=== PATIENT | male | born 1975 | race African-American/Black ===

== ENCOUNTER 2020-06-24 12:39 | Emergency (ER) | payer OTHER ==
[~2020-06-24] VITALS: Ht 190.5 cm; Wt 100.0 kg
[2020-06-24 14:06] LABS: BASOPHILS # (AUTO) 0.1 X10'3 (0-0.2); BASOPHILS % (AUTO) 0.8 % (0-1); EOSINOPHILS # (AUTO) 0.2 X10'3 (0-0.9); EOSINOPHILS % (AUTO) 1.7 % (0-6); HEMATOCRIT 45.4 % (42.0-52.0); HEMOGLOBIN 14.9 g/dl (14.0-17.9); LYMPHOCYTES # (AUTO) 1.9 X10'3 (1.1-4.8); LYMPHOCYTES % (AUTO) 15.4 % (21-51); MEAN CORPUSCULAR HEMOGLOBIN 29.9 PG (27.0-31.0); MEAN CORPUSCULAR HGB CONC 32.8 g/dL (33.0-36.5); MEAN CORPUSCULAR VOLUME 91.4 FL (78-98); MEAN PLATELET VOLUME 7.8 FL (7.4-10.4); MONOCYTES # (AUTO) 1.1 X10'3 (0-0.9); MONOCYTES % (AUTO) 9.3 % (2-12); NEUTROPHILS # (AUTO) 8.9 X10'3 (1.8-7.7); NEUTROPHILS % (AUTO) 72.8 % (42-75); PLATELET COUNT 242 X10'3 (140-440); RED BLOOD COUNT 4.96 X10'6 (4.70-6.10); RED CELL DISTRIBUTION WIDTH 13.2 % (11.5-14.5); WHITE BLOOD COUNT 12.2 X10'3 (4.5-11.0)
[2020-06-24 14:20] LABS: ALANINE AMINOTRANSFERASE 43 U/L (12-78); ALBUMIN 2.7 G/DL (3.4-5.0); ALBUMIN/GLOBULIN RATIO 0.7 (1.1-1.5); ALKALINE PHOSPHATASE 92 IU/L (46-116); ANION GAP 8 (8-16); ASPARTATE AMINO TRANSFERASE 29 U/L (10-37); BILIRUBIN,TOTAL 0.8 MG/DL (0.1-1.0); BLOOD UREA NITROGEN 12 MG/DL (7-18); BUN/CREATININE RATIO 10.9 (5.4-32.0); CALCIUM 8.4 MG/DL (8.5-10.1); CHLORIDE 108 MMOL/L (99-107); GLUCOSE 95 MG/DL (70-104); POTASSIUM 3.5 MMOL/L (3.5-5.1); SODIUM 144 MMOL/L (135-145); TOTAL CARBON DIOXIDE 28.4 MMOL/L (24-32); TOTAL PROTEIN 6.6 G/DL (6.4-8.2); eGFR 72 ML/MIN
[2020-06-24] MEDS ORDERED: carVEDilol 12.5mg tablet PO SCH (16:55)
[2020-06-24] MEDS ORDERED: furosemide 10 MG/1 ML 10ml inj IV ONE (17:00)
[2020-06-24] MEDS ORDERED: aspirin 81mg tab.chew PO ONE (17:00)
[2020-06-24] MEDS ORDERED: enalaprilat dihydrate 2.5mg/2ml vial IV ONE (17:10)
[2020-06-24 18:19] VITALS: BP 147/103
== END 2020-06-24 18:21 | disposition home or self-care (01) ==
LOC: EEVIPCON 12:40 → ER 12:40
DX: I11.0 Hypertensive heart disease with heart failure (principal); I50.20 Unspecified systolic (congestive) heart failure; F15.90 Other stimulant use, unspecified, uncomplicated
CPT/HCPCS: 36415; 71045; 80053; 83880; 84484; 85025; 93005; 93306; 96374; 96375; 99285; J1940

== ENCOUNTER 2020-09-22 20:49 | Inpatient (IN) | payer MEDICAID, OTHER ==
[~2020-09-22] VITALS: Ht 190.5 cm; Wt 111.3 kg
[2020-09-22 21:22] LABS: BASOPHILS # (AUTO) 0.2 X10'3 (0-0.2); BASOPHILS % (AUTO) 1.5 % (0-1); EOSINOPHILS # (AUTO) 0.2 X10'3 (0-0.9); HEMATOCRIT 44.6 % (42.0-52.0); HEMOGLOBIN 14.3 g/dl (14.0-17.9); LYMPHOCYTES # (AUTO) 1.6 X10'3 (1.1-4.8); LYMPHOCYTES % (AUTO) 14.1 % (21-51); MEAN CORPUSCULAR HEMOGLOBIN 30.5 PG (27.0-31.0); MEAN CORPUSCULAR HGB CONC 32.2 g/dL (33.0-36.5); MEAN CORPUSCULAR VOLUME 94.9 FL (78-98); MEAN PLATELET VOLUME 7.8 FL (7.4-10.4); MONOCYTES # (AUTO) 1.1 X10'3 (0-0.9); MONOCYTES % (AUTO) 9.1 % (2-12); NEUTROPHILS # (AUTO) 8.5 X10'3 (1.8-7.7); NEUTROPHILS % (AUTO) 73.3 % (42-75); PLATELET COUNT 206 X10'3 (140-440); RED CELL DISTRIBUTION WIDTH 13.5 % (11.5-14.5); WHITE BLOOD COUNT 11.6 X10'3 (4.5-11.0)
[2020-09-22 21:34] LABS: ALANINE AMINOTRANSFERASE 42 U/L (12-78); ALBUMIN 3.1 G/DL (3.4-5.0); ALBUMIN/GLOBULIN RATIO 0.7 (1.1-1.5); ALKALINE PHOSPHATASE 133 IU/L (46-116); ANION GAP 7 (8-16); ASPARTATE AMINO TRANSFERASE 37 U/L (10-37); BILIRUBIN,TOTAL 0.6 MG/DL (0.1-1.0); BLOOD UREA NITROGEN 31 MG/DL (7-18); BUN/CREATININE RATIO 17.9 (5.4-32.0); CALCIUM 8.6 MG/DL (8.5-10.1); CHLORIDE 107 MMOL/L (99-107); CREATININE 1.73 MG/DL (0.60-1.10); GLUCOSE 151 MG/DL (70-104); POTASSIUM 3.6 MMOL/L (3.5-5.1); SODIUM 142 MMOL/L (135-145); TOTAL CARBON DIOXIDE 27.9 MMOL/L (24-32); TOTAL PROTEIN 7.8 G/DL (6.4-8.2); eGFR 52 ML/MIN
[2020-09-22] MEDS ORDERED: furosemide 10 MG/1 ML 10ml inj IV ONE (21:55)
[2020-09-22] MEDS ORDERED: LISI40TA4 PO (22:05)
[2020-09-22] MEDS ORDERED: FURO-149 PO (22:05)
[2020-09-22] MEDS ORDERED: CARV25TA PO (22:05)
[2020-09-22] MEDS ORDERED: magnesium hydroxide 30ml (MOM) UD suspension PO PRN (23:15)
[2020-09-22] MEDS ORDERED: acetaminophen 325mg tablet PO PRN (23:15)
[2020-09-22] MEDS ORDERED: potassium Cl 40MEQ/1/2NS 520ml 520 ML IV PRN ×2 (23:15)
[2020-09-22] MEDS ORDERED: mag hydrox/Alum hydrox/simeth 30ml oral suspension PO PRN (23:15)
[2020-09-22] MEDS ORDERED: potassium Cl 20 mEq SR tablet PO PRN (23:15)
[2020-09-22] MEDS ORDERED: ondansetron/PF 4mg/2ml inj IV PRN (23:15)
[2020-09-23] MEDS ORDERED: IBUP-24 PO (00:19)
[2020-09-23 03:05] LABS: BASOPHILS # (AUTO) 0.1 X10'3 (0-0.2); EOSINOPHILS # (AUTO) 0.1 X10'3 (0-0.9); EOSINOPHILS % (AUTO) 1.1 % (0-6); HEMOGLOBIN 13.8 g/dl (14.0-17.9); LYMPHOCYTES # (AUTO) 2.3 X10'3 (1.1-4.8); LYMPHOCYTES % (AUTO) 23.8 % (21-51); MEAN CORPUSCULAR HEMOGLOBIN 30.6 PG (27.0-31.0); MEAN CORPUSCULAR HGB CONC 32.8 g/dL (33.0-36.5); MEAN CORPUSCULAR VOLUME 93.4 FL (78-98); MEAN PLATELET VOLUME 7.8 FL (7.4-10.4); MONOCYTES % (AUTO) 10.8 % (2-12); NEUTROPHILS # (AUTO) 6.1 X10'3 (1.8-7.7); NEUTROPHILS % (AUTO) 63.3 % (42-75); PLATELET COUNT 199 X10'3 (140-440); RED BLOOD COUNT 4.49 X10'6 (4.70-6.10); RED CELL DISTRIBUTION WIDTH 13.5 % (11.5-14.5); WHITE BLOOD COUNT 9.7 X10'3 (4.5-11.0)
[2020-09-23 03:19] LABS: ALANINE AMINOTRANSFERASE 43 U/L (12-78); ALBUMIN 2.9 G/DL (3.4-5.0); ALBUMIN/GLOBULIN RATIO 0.6 (1.1-1.5); ALKALINE PHOSPHATASE 109 IU/L (46-116); ANION GAP 7 (8-16); ASPARTATE AMINO TRANSFERASE 44 U/L (10-37); BILIRUBIN,TOTAL 0.8 MG/DL (0.1-1.0); BLOOD UREA NITROGEN 29 MG/DL (7-18); BUN/CREATININE RATIO 19.7 (5.4-32.0); CALCIUM 8.9 MG/DL (8.5-10.1); CHLORIDE 109 MMOL/L (99-107); CREATININE 1.47 MG/DL (0.60-1.10); GLUCOSE 128 MG/DL (70-104); POTASSIUM 3.1 MMOL/L (3.5-5.1); SODIUM 145 MMOL/L (135-145); TOTAL CARBON DIOXIDE 28.9 MMOL/L (24-32); TOTAL PROTEIN 7.4 G/DL (6.4-8.2); eGFR 62 ML/MIN
[2020-09-23] MEDS: potassium Cl 20 mEq SR tablet PO PRN ×3 (04:10→16:02)
[2020-09-23] MEDS: K and/or MAG REPLACEMENT MC SCH ×2 (08:00→19:48)
[2020-09-23] MEDS ORDERED: furosemide 20 MG/2 ML vial IV SCH (08:00)
[2020-09-23] MEDS: carVEDilol 12.5mg tablet PO SCH ×2 (08:17→19:42)
[2020-09-23] MEDS: lisinopril 20mg tablet PO SCH (08:21)
[2020-09-23] MEDS: heparin, porcine 5000 units/ml vial SQ SCH ×2 (08:25→19:43)
--- NOTE | 2020-09-23 09:09 | NUR ---
received report from vin foote
[2020-09-23 09:43] VITALS: BP 114/83
[2020-09-23 11:00] VITALS: BP 108/76
[2020-09-23 15:00] VITALS: BP 111/77
[2020-09-23 18:00] VITALS: BP 132/78
--- NOTE | 2020-09-23 18:09 | NUR ---
gave report to vin degroot
--- NOTE | 2020-09-23 18:36 | NUR ---
Patient in room PCU 3012. I have received report from Nichol CROUCH and had the opportunity to ask questions and assume patient care.
[2020-09-23] MEDS: furosemide 40mg/4ml inj IV SCH (19:42)
[2020-09-23 22:00] VITALS: BP 103/71
[2020-09-23] MEDS ORDERED: HYDROcodone/acetaminophen 5mg/325mg tablet PO ONE (22:10)
[2020-09-23] MEDS ORDERED: temazepam 15mg capsule PO PRN (22:10)
[2020-09-24 02:00] VITALS: BP 113/82
--- NOTE | 2020-09-24 06:28 | NUR ---
Problems reprioritized. Patient report given, questions answered & plan of care reviewed with Ronn RN.
--- NOTE | 2020-09-24 06:30 | NUR ---
Patient in room PCU 3012. I have received report from Marion CROUCH and had the opportunity to ask questions and assume patient care.
[2020-09-24 06:49] LABS: BASOPHILS # (AUTO) 0.1 X10'3 (0-0.2); BASOPHILS % (AUTO) 0.8 % (0-1); EOSINOPHILS # (AUTO) 0.1 X10'3 (0-0.9); EOSINOPHILS % (AUTO) 1.3 % (0-6); HEMATOCRIT 39.9 % (42.0-52.0); HEMOGLOBIN 13.2 g/dl (14.0-17.9); LYMPHOCYTES # (AUTO) 2.6 X10'3 (1.1-4.8); LYMPHOCYTES % (AUTO) 27.1 % (21-51); MEAN CORPUSCULAR HEMOGLOBIN 30.5 PG (27.0-31.0); MEAN CORPUSCULAR HGB CONC 33.1 g/dL (33.0-36.5); MONOCYTES # (AUTO) 1.2 X10'3 (0-0.9); MONOCYTES % (AUTO) 12.2 % (2-12); NEUTROPHILS # (AUTO) 5.7 X10'3 (1.8-7.7); NEUTROPHILS % (AUTO) 58.6 % (42-75); PLATELET COUNT 185 X10'3 (140-440); RED BLOOD COUNT 4.33 X10'6 (4.70-6.10); RED CELL DISTRIBUTION WIDTH 13.3 % (11.5-14.5); WHITE BLOOD COUNT 9.7 X10'3 (4.5-11.0)
[2020-09-24 07:11] LABS: ALANINE AMINOTRANSFERASE 38 U/L (12-78); ALBUMIN 2.5 G/DL (3.4-5.0); ALBUMIN/GLOBULIN RATIO 0.6 (1.1-1.5); ALKALINE PHOSPHATASE 95 IU/L (46-116); ANION GAP 6 (8-16); ASPARTATE AMINO TRANSFERASE 27 U/L (10-37); BILIRUBIN,TOTAL 0.7 MG/DL (0.1-1.0); BLOOD UREA NITROGEN 27 MG/DL (7-18); BUN/CREATININE RATIO 17.5 (5.4-32.0); CALCIUM 8.3 MG/DL (8.5-10.1); CHLORIDE 105 MMOL/L (99-107); CREATININE 1.54 MG/DL (0.60-1.10); GLUCOSE 107 MG/DL (70-104); POTASSIUM 3.4 MMOL/L (3.5-5.1); SODIUM 140 MMOL/L (135-145); TOTAL CARBON DIOXIDE 28.7 MMOL/L (24-32); TOTAL PROTEIN 6.6 G/DL (6.4-8.2); eGFR 59 ML/MIN
[2020-09-24 07:22] VITALS: BP 108/78
[2020-09-24] MEDS: K and/or MAG REPLACEMENT MC SCH (08:00)
[2020-09-24] MEDS: carVEDilol 12.5mg tablet PO SCH (09:17)
[2020-09-24] MEDS: lisinopril 20mg tablet PO SCH (09:17)
[2020-09-24] MEDS: furosemide 40mg/4ml inj IV SCH (09:18)
[2020-09-24] MEDS: heparin, porcine 5000 units/ml vial SQ SCH (09:24)
[2020-09-24 11:34] VITALS: BP 110/78
[2020-09-24] MEDS ORDERED: POTA20TA19 PO ×2 (14:38→15:10)
[2020-09-24 15:00] VITALS: BP 112/76
[2020-09-24] MEDS ORDERED: hydrOXYzine 25 MG tablet PO ONE (15:05)
[2020-09-24] MEDS ORDERED: HYDR50TA65 PO (15:10)
--- NOTE | 2020-09-24 16:00 | NUR ---
Patient left with all belongings at discharge. Patient left with two new Rx and was educated on their uses. Patient expressed verbal understanding of teaching. Patient was educated on follow up with PCP or walker fallon. Patient iv was taken out at the time of discharge and canula was whole and intact upon inspection at removal. Patient taken to lobby at discharge in wheelchair.
[2020-09-24] MEDS ORDERED: diatr meglu/diatrizoate 30ml oral sol.-(3 dose) bottle PO SCH (21:00)
== END 2020-09-24 17:55 | disposition home or self-care (01) | DRG 194 ==
LOC: ER 20:49 → ED HOLD 23:14 → PCU 3S 09-23 09:23
PROVIDERS: ADMIT Internal Medicine; ATTEND Family Medicine
DX: I13.0 Hypertensive heart and chronic kidney disease with heart failure and stage 1 through stage 4 chronic kidney disease, or unspecified chronic kidney disease (principal); N17.0 Acute kidney failure with tubular necrosis; I50.23 Acute on chronic systolic (congestive) heart failure; F15.10 Other stimulant abuse, uncomplicated; F41.9 Anxiety disorder, unspecified; E87.6 Hypokalemia; M54.9 Dorsalgia, unspecified; I21.A1 Myocardial infarction type 2; N18.30 Chronic kidney disease, stage 3 unspecified; Z59.0 Homelessness; Z79.899 Other long term (current) drug therapy
CPT/HCPCS: 36415; 71045; 74176; 80053; 83880; 84484; 85025; 87081; 93005; 93308; 96374; 99285; G0378; J1644; J1940; Q0177